=== PATIENT | female | born 1990 | race Caucasian/White ===

== ENCOUNTER 2017-10-27 20:26 | Emergency (ER) | payer OTHER ==
[~2017-10-27] VITALS: Ht 162.6 cm; Wt 61.2 kg
[~2017-10-27 20:26] MED LIST: ACYC400 PO; ALBU90OI INH; AMOX500 PO; AZIT250 PO; BIRTH CONTROL PILLS; BUPR100; CEPH500 PO; CETI10 PO; CIPR500 PO; CITA20 PO; CLON.5 PO; CODACE30 PO; DIAZ5 PO; DIPH50 PO; ENBREL SQ; FERR325 PO; FLUC150A PO; GABA300; HYDACE5 PO; HYDROCODON-ACE1 EAC4 PO; IBUP800 PO; NAPR375 PO; NAPR500 PO; NAPR550 PO; NAPROSYN; NORT10 PO; OXYACE5T PO; PERM5TC TOP; PHENA200 PO; PRED10 PO; PRENZ PO; PROM25 PO; Percocet 10-321 EACH; Percocet 5-3251 EACH PO; RXCODACET PO; RXHYDACE PO; RXONDA4ODT MM; RXTRAM50 PO; SULTRIDS PO; TRAM50 PO; TRIA80TC TOP
[2017-10-27] MEDS ORDERED: PRED10 PO (20:49)
[2017-10-27] MEDS ORDERED: ETAN50I IM (20:50)
== END 2017-10-27 21:12 | disposition home or self-care (01) ==
LOC: ER 20:26
DX: L23.7 Allergic contact dermatitis due to plants, except food (principal); Z88.8 Allergy status to other drugs, medicaments and biological substances; Z79.899 Other long term (current) drug therapy; Z79.891 Long term (current) use of opiate analgesic; Z79.52 Long term (current) use of systemic steroids; G43.909 Migraine, unspecified, not intractable, without status migrainosus; D64.9 Anemia, unspecified; F17.210 Nicotine dependence, cigarettes, uncomplicated
CPT/HCPCS: 96372; 99283; J3301

== ENCOUNTER → 2017-11-11 | Outpatient (CLI) | payer OTHER ==
[~2017-11-11] MED LIST changes: +ETAN50I IM
[2017-11-11 11:21] LABS: Source, Urine Voided; Specimen Source URINE
[2017-11-11 15:16] LABS: Appearance, Urine Hazy (Clear); Bilirubin, Urine Neg (Neg); Blood, Urine Neg (Neg); Color, Urine Yellow (P-Yellow); Glucose Qualitative, Urine Neg (Neg); Ketones, Urine Neg (Neg); Leukocyte Esterase, Urine Neg (Neg); Nitrite, Urine Neg (Neg); Protein, Urine Neg (Neg); Urobilinogen, Urine NORM (Normal)
[2017-11-11 15:24] LABS: Amorphous Light (0-Heavy); Bacteria Rare /hpf; Red Blood Cells, Urine 0-2 /hpf (0-2); Squamous Epithelial Cells Mod /hpf (Few); White Blood Cells, Urine 0-2 /hpf (0-5)
[2017-11-12 10:09] LABS: Source Urine
== END ==
LOC: LAB SHORT 11:15 → LAB SRC 11:15
PROVIDERS: Nurse Practitioner Family
DX: R10.9 Unspecified abdominal pain (principal)
CPT/HCPCS: 81001; 87491; 87591

== ENCOUNTER → 2017-12-30 | Outpatient (CLI) | payer OTHER ==
[2017-12-30 15:05] LABS: Candida species (DNA Probe) Negative (NEGATIVE); G. vaginalis (DNA Probe) Positive (NEGATIVE); T. vaginalis (DNA Probe) Negative (NEGATIVE)
== END | disposition home or self-care (01) ==
LOC: LAB SHORT 11:13 → LAB 11:13
PROVIDERS: Advanced Practice Midwife
DX: Z01.419 Encounter for gynecological examination (general) (routine) without abnormal findings (principal); N76.0 Acute vaginitis
CPT/HCPCS: 87480; 87510; 87660

== ENCOUNTER 2018-01-15 09:48 | Emergency (ER) | payer OTHER ==
[~2018-01-15] VITALS: Ht 162.6 cm; Wt 68.0 kg
[2018-01-15] MEDS ORDERED: GABA600 PO (10:39)
[2018-01-15] MEDS ORDERED: FOLI1 PO (10:39)
[2018-01-15 10:50] LABS: Source, Urine Clean Catch
[2018-01-15 10:55] LABS: Bilirubin, Urine Neg (Neg); Blood, Urine 2+ (Neg); Glucose Qualitative, Urine Neg (Neg); Ketones, Urine Neg (Neg); Leukocyte Esterase, Urine 2+ (Neg); Nitrite, Urine Neg (Neg); Protein, Urine 1+ (Neg); Urobilinogen, Urine 1+ (Normal)
[2018-01-15] MEDS ORDERED: Pyridium200 MG PO (10:55)
[2018-01-15] MEDS ORDERED: Cipro500 MG PO (10:55)
[2018-01-15 11:08] LABS: Appearance, Urine Hazy (Clear); Color, Urine Yellow (P-Yellow)
[2018-01-15 11:13] LABS: White Blood Cells, Urine 25-50 /hpf (0-5)
[2018-01-15 11:15] LABS: Bacteria Few /hpf; Squamous Epithelial Cells Mod /hpf (Few)
== END 2018-01-15 11:20 | disposition home or self-care (01) ==
LOC: ER 09:48
PROVIDERS: Physician Assistant
DX: N39.0 Urinary tract infection, site not specified (principal); D64.9 Anemia, unspecified; F17.210 Nicotine dependence, cigarettes, uncomplicated; Z88.8 Allergy status to other drugs, medicaments and biological substances; Z79.899 Other long term (current) drug therapy
CPT/HCPCS: 81001; 81025; 87077; 87086; 87186; 99283

== ENCOUNTER 2018-01-25 14:26 | Emergency (ER) | payer OTHER ==
[~2018-01-25] VITALS: Ht 162.6 cm; Wt 68.0 kg
[~2018-01-25 14:26] MED LIST changes: +Cipro500 MG PO; +FOLI1 PO; +GABA600 PO; +Pyridium200 MG PO
== END 2018-01-25 15:22 | disposition home or self-care (01) ==
LOC: ER 14:26
DX: T63.441A Toxic effect of venom of bees, accidental (unintentional), initial encounter (principal); Z88.8 Allergy status to other drugs, medicaments and biological substances; Z79.899 Other long term (current) drug therapy; Z79.2 Long term (current) use of antibiotics; D64.9 Anemia, unspecified; F17.210 Nicotine dependence, cigarettes, uncomplicated
CPT/HCPCS: 96372; 99283-25; J1885; Q0163

== ENCOUNTER 2018-09-27 19:36 | Emergency (ER) | payer OTHER ==
[~2018-09-27] VITALS: Ht 167.6 cm; Wt 61.2 kg
[2018-09-27] MEDS ORDERED: COSENTYX (150 MG/1 M SQ (19:47)
[2018-09-27] MEDS ORDERED: HYDR-86 (19:47)
[2018-09-28 03:07] LABS: Calcium, Ionized (POC) 1.19 mmol/L (1.10-1.46); Chloride (POC) 105 mmol/L (98-108); Creatinine (POC) 0.6 mg/dL (0.6-1.0); Glucose (ISTAT POC) 96 mg/dL (70-99); Hemoglobin (POC) 14.3 g/dL (12.0-16.0); Potassium (POC) 3.9 mmol/L (3.5-5.5); Sodium (POC) 140 mmol/L (135-148); Total CO2 (POC) 22 mmol/L (21-32)
== END 2018-09-28 00:40 | disposition home or self-care (01) ==
LOC: ER 19:36
DX: R51 Headache (principal)
CPT/HCPCS: 70450; 80047; 85014; 96372; 99284-25; J1200; J1885; J2550

== ENCOUNTER 2018-10-30 04:21 | Emergency (ER) | payer OTHER ==
[~2018-10-30] VITALS: Ht 162.6 cm; Wt 59.0 kg
[~2018-10-30 04:21] MED LIST changes: +COSENTYX (150 MG/1 M SQ; +HYDR-86
[2018-10-30] MEDS ORDERED: Amoxicillin875 MG PO (04:52)
== END 2018-10-30 05:10 | disposition home or self-care (01) ==
LOC: ER 04:21
DX: H65.91 Unspecified nonsuppurative otitis media, right ear (principal); H66.92 Otitis media, unspecified, left ear; D64.9 Anemia, unspecified; F17.210 Nicotine dependence, cigarettes, uncomplicated; Z88.8 Allergy status to other drugs, medicaments and biological substances; Z79.899 Other long term (current) drug therapy
CPT/HCPCS: 96372; 99282-25; J1885

== ENCOUNTER 2019-02-12 00:21 | Emergency (ER) | payer OTHER ==
[~2019-02-12] VITALS: Ht 165.1 cm; Wt 59.0 kg
[~2019-02-12 00:21] MED LIST changes: +Amoxicillin875 MG PO
[2019-02-12] MEDS ORDERED: ENBREL50 MG/1 ML SC (01:04)
[2019-02-12] MEDS ORDERED: KETO10 PO (02:00)
[2019-02-13] MEDS ORDERED: CEPH500 PO (17:24)
== END 2019-02-12 02:23 | disposition home or self-care (01) ==
LOC: ER 00:21
DX: M25.511 Pain in right shoulder (principal); M25.512 Pain in left shoulder; M25.551 Pain in right hip; M25.552 Pain in left hip; Z88.8 Allergy status to other drugs, medicaments and biological substances; Z79.899 Other long term (current) drug therapy; F17.210 Nicotine dependence, cigarettes, uncomplicated
CPT/HCPCS: 96372; 99283-25; J1885

== ENCOUNTER 2019-02-13 13:27 | Emergency (ER) | payer OTHER ==
[~2019-02-13] VITALS: Ht 162.6 cm; Wt 59.0 kg
[~2019-02-13 13:27] MED LIST changes: +ENBREL50 MG/1 ML SC; +KETO10 PO
[2019-02-13 16:11] LABS: Source, Urine Clean Catch
[2019-02-13 16:12] LABS: Bilirubin, Urine Neg (Neg); Blood, Urine 1+ (Neg); Glucose Qualitative, Urine Neg (Neg); Ketones, Urine Neg (Neg); Leukocyte Esterase, Urine 3+ (Neg); Nitrite, Urine Neg (Neg); Protein, Urine 1+ (Neg); Urobilinogen, Urine NORM (Normal)
[2019-02-13 17:04] LABS: Appearance, Urine Clear (Clear); Color, Urine Yellow (P-Yellow)
[2019-02-13 17:06] LABS: Bacteria Few /hpf; Squamous Epithelial Cells Few /hpf (Few); White Blood Cells, Urine 50-100 /hpf (0-5)
[2019-02-13] MEDS ORDERED: CEPH500 PO (17:24)
== END 2019-02-13 17:39 | disposition home or self-care (01) ==
LOC: ER 13:27
PROVIDERS: Emergency Medicine
DX: N39.0 Urinary tract infection, site not specified (principal); D64.9 Anemia, unspecified; G43.909 Migraine, unspecified, not intractable, without status migrainosus; F17.210 Nicotine dependence, cigarettes, uncomplicated; R10.9 Unspecified abdominal pain; R11.2 Nausea with vomiting, unspecified; Z79.899 Other long term (current) drug therapy
CPT/HCPCS: 36415; 80053; 81001; 81025; 83690; 85025; 87077; 87086; 87186; 96360; 99283-25; J7030

== ENCOUNTER → 2019-03-09 | Outpatient (CLI) | payer OTHER | LOC: LAB 17:31 → LAB SHORT 17:31 | DX: R10.9 Unspecified abdominal pain (principal); M54.9 Dorsalgia, unspecified | CPT/HCPCS: 87077; 87086; 87186 ==

== ENCOUNTER 2019-05-29 04:01 | Emergency (ER) | payer OTHER ==
[~2019-05-29] VITALS: Ht 162.6 cm; Wt 56.7 kg
[2019-05-29] MEDS ORDERED: OXYC5 PO (04:13)
== END 2019-05-29 04:35 | disposition home or self-care (01) ==
LOC: ER 04:01
DX: L25.9 Unspecified contact dermatitis, unspecified cause (principal); F17.210 Nicotine dependence, cigarettes, uncomplicated; Z88.8 Allergy status to other drugs, medicaments and biological substances; Z79.899 Other long term (current) drug therapy
CPT/HCPCS: 96372; 99282-25; J1100; J3301

== ENCOUNTER 2019-07-09 19:08 | Emergency (ER) | payer OTHER ==
[~2019-07-09] VITALS: Ht 162.6 cm; Wt 59.0 kg
[~2019-07-09 19:08] MED LIST changes: +GABA300 PO; -GABA600 PO; +OXYC5 PO
[2019-07-09] MEDS ORDERED: LEVSOD25 PO (19:15)
[2019-07-09] MEDS ORDERED: Cephalexin500 MG PO (22:59)
== END 2019-07-09 23:12 | disposition home or self-care (01) ==
LOC: ER 19:08
DX: L02.31 Cutaneous abscess of buttock (principal); D64.9 Anemia, unspecified; E03.9 Hypothyroidism, unspecified; M79.10 Myalgia, unspecified site; Z88.8 Allergy status to other drugs, medicaments and biological substances; Z79.899 Other long term (current) drug therapy; F17.210 Nicotine dependence, cigarettes, uncomplicated
CPT/HCPCS: 10080; 99283-25; A9270; A9270-GY

== ENCOUNTER → 2019-08-30 | Outpatient (CLI) | payer OTHER ==
[~2019-08-30] MED LIST changes: +Cephalexin500 MG PO; +LEVSOD25 PO
[2019-09-03 14:06] LABS: CHLAMYDIA TRACHOMATIS, NAA Negative (Negative); HPV 16 Negative (Negative); HPV 18 Negative (Negative); HPV OTHER HR TYPES Negative (Negative); NEISSERIA GONORRHOEAE, NAA Negative (Negative)
== END | disposition home or self-care (01) ==
LOC: LAB 10:15 → LAB SHORT 10:15
PROVIDERS: Obstetrics & Gynecology
DX: Z01.419 Encounter for gynecological examination (general) (routine) without abnormal findings (principal)
CPT/HCPCS: 87491; 87591; 87624; G0123

== ENCOUNTER 2020-06-05 14:48 | Emergency (ER) | payer OTHER ==
[~2020-06-05] VITALS: Ht 162.6 cm; Wt 61.2 kg
== END 2020-06-05 17:52 | disposition left against medical advice (07) ==
LOC: ER 14:48
DX: Z53.21 Procedure and treatment not carried out due to patient leaving prior to being seen by health care provider (principal)